=== PATIENT | male | born 1965 | race Hispanic/Latino ===

== ENCOUNTER 2018-12-17 21:34 | Emergency (ER) | payer OTHER ==
[2018-12-17] MEDS ORDERED: NACL 0.9% 1000 ML 1,000 ML IV ONE (21:40)
--- NOTE | 2018-12-17 21:44 | Emergency Department Report ---
ED General Adult HPI - General Stated complaint: SYNCOPAL EPISODE Time Seen by Provider: 12/17/18 21:40 - History of Present Illness Initial comments: Patient is 53 years old male with history of hypertension. Patient throat to the emergency room via EMS after 1 syncopal episode that happened just prior to coming to the ER. Patient stated that he was helping his friend moving out. Patient stated that he just took his blood pressure medicine today. EMS stated that patient initial blood pressure was 80/50 improved significantly with 500 mL of normal saline. Patient stated that he swimming much better but he is having cramping in his legs. Patient denied any chest pain or shortness of breath. - Related Data Allergies Allergy/AdvReac Type Severity Reaction Status Date / Time ketorolac [From Toradol] Allergy Anaphylaxis Verified 12/17/18 21:51 ED Review of Systems ROS: Stated complaint: SYNCOPAL EPISODE Other details as noted in HPI Comment: All other systems reviewed and negative Constitutional: denies: chills, fever Respiratory: denies: cough, shortness of breath, SOB with exertion Cardiovascular: denies: chest pain, palpitations Gastrointestinal: denies: abdominal pain, nausea, vomiting, diarrhea, constipation, hematemesis, melena, hematochezia Musculoskeletal: denies: back pain Neurological: weakness (generalized). denies: headache, numbness, paresthesias, confusion ED Physical Exam - General General appearance: alert, in no apparent distress - Head Head exam: Present: atraumatic, normocephalic, normal inspection - Eye Eye exam: Present: normal appearance, PERRL - ENT ENT exam: Present: mucous membranes dry - Neck Neck exam: Present: normal inspection, full ROM. Absent: tenderness, meningismus, lymphadenopathy, thyromegaly - Respiratory Respiratory exam: Present: normal lung sounds bilaterally - Cardiovascular Cardiovascular Exam: Present: regular rate, normal rhythm, normal heart sounds - GI/Abdominal GI/Abdominal exam: Present: soft, normal bowel sounds. Absent: distended, tenderness, guarding, rebound, rigid, organomegaly, pulsatile mass, hernia - Extremities Exam Extremities exam: Present: normal inspection, full ROM, normal capillary refill - Back Exam Back exam: Present: normal inspection, full ROM. Absent: CVA tenderness (R), CVA tenderness (L), muscle spasm, paraspinal tenderness - Neurological Exam Neurological exam: Present: alert, oriented X3, CN II-XII intact, normal gait, reflexes normal - Psychiatric Psychiatric exam: Present: normal mood - Skin Skin exam: Present: warm, intact, normal color ED Course Vital Signs 12/17/18 12/17/18 12/17/18 21:40 21:45 21:55 Temperature 98.4 F Pulse Rate 82 83 82 Respiratory 14 17 17 Rate Blood Pressure 113/79 113/79 Blood Pressure 113/79 [Right] O2 Sat by Pulse 97 95 94 Oximetry 12/17/18 12/18/18 22:00 00:35 Temperature Pulse Rate 76 81 Respiratory 13 16 Rate Blood Pressure 116/73 Blood Pressure 117/76 [Right] O2 Sat by Pulse 94 98 Oximetry ED Medical Decision Making - Lab Data Result diagrams: 12/17/18 21:59 12/17/18 21:59 - EKG Data -: EKG Interpreted by Me EKG shows normal: sinus rhythm Rate: normal - EKG Data Interpretation: no acute changes - Medical Decision Making Patient is 53 years old male with history of hypertension. Patient throat to the emergency room via EMS after 1 syncopal episode that happened just prior to coming to the ER. Patient stated that he was helping his friend moving out. Patient stated that he just took his blood pressure medicine today. EMS stated that patient initial blood pressure was 80/50 improved significantly with 500 mL of normal saline. Patient stated that he swimming much better but he is having cramping in his legs. Patient denied any chest pain or shortness of breath. Patient received normal saline. Patient stated that he is feeling much better. I believe the patient's symptoms is most likely related to dehydration and possible heat exhaustion loss that he took he is amlodipine that he did not take for a while. Patient advised to drink more fluids and to follow-up with his primary care physician in the next 2-3 days and to return to the ER if symptoms are not improved. Critical care attestation.: If time is entered above; I have spent that time in minutes in the direct care of this critically ill patient, excluding procedure time. ED Disposition Clinical Impression: Syncope Disposition: DC-01 TO HOME OR SELFCARE Is pt being admited?: No Condition: Stable Instructions: Syncope (ED) Referrals: KAMI SCHMITZ MD [Primary Care Provider] - 3-5 Days
[2018-12-17 22:31] LABS: Basophils # (Auto) 0.1 K/mm3 (0.0-0.1); Basophils % (Auto) 0.9 % (0.0-1.8); Eosinophils # (Auto) 0.4 K/mm3 (0.0-0.4); Eosinophils % (Auto) 3.9 % (0.0-4.3); Hematocrit 41.1 % (35.5-45.6); Hemoglobin 13.8 gm/dl (11.8-15.2); Lymphocytes % (Auto) 18.4 % (13.4-35.0); Mean Corpuscular HGB Conc 34 % (32-34); Mean Corpuscular Volume 84 fl (84-94); Monocytes # (Auto) 0.7 K/mm3 (0.0-0.8); Monocytes % (Auto) 6.1 % (0.0-7.3); Platelet Count 306 K/mm3 (140-440); Red Blood Count 4.87 M/mm3 (3.65-5.03); Red Cell Distribution Width 13.9 % (13.2-15.2)
[2018-12-17 22:47] LABS: Alanine Aminotransferase 22 units/L (7-56); BUN/Creatinine Ratio 11; Blood Urea Nitrogen 12 mg/dL (9-20); Calcium 8.2 mg/dL (8.4-10.2); Hemolysis Index 26
[2018-12-17 22:48] LABS: Bilirubin,Direct < 0.2 mg/dL (0-0.2)
[2018-12-18 00:07] LABS: Amphetamine Screen,Urine PRESUMPTIVE NEGATIVE; Benzodiazepines Screen,Urine PRESUMPTIVE NEGATIVE; Cannabinoid Screen,Urine PRESUMPTIVE NEGATIVE; Cocaine Screen,Urine PRESUMPTIVE NEGATIVE; Methadone Screen,Urine PRESUMPTIVE NEGATIVE; Opiate Screen,Urine PRESUMPTIVE NEGATIVE
[2018-12-18 00:10] LABS: Bilirubin,Urine NEG (Negative); Blood,Urine NEG (Negative); Color,Urine Yellow (Yellow); Hyaline Casts,Urine 90 /LPF; Mucus,Urine 1+ /HPF; Protein,Urine <15 mg/dL mg/dL (Negative); Urobilinogen,Urine < 2.0 mg/dL (<2.0)
[2018-12-18 00:39] VITALS: BP 117/76
== END 2018-12-18 01:10 | disposition home or self-care (01) ==
LOC: ED 21:34
DX: R55 Syncope and collapse (principal); M79.604 Pain in right leg; M79.605 Pain in left leg; Z88.6 Allergy status to analgesic agent; Z79.899 Other long term (current) drug therapy
CPT/HCPCS: 36415; 80048; 80076; 80307; 81001; 82550; 84484; 85025; 93005; 93010; 96360; 99284; J7030